=== PATIENT | male | born 1960 | race Caucasian/White ===

== ENCOUNTER 2017-02-05 20:52 | Emergency (ER) | payer MEDICARE, MEDICAID ==
[~2017-02-05] VITALS: Ht 170.2 cm; Wt 76.0 kg
[2017-02-05 20:57] VITALS: BP 130/90
[2017-02-05] MEDS ORDERED: IBUPROFEN 200 MG TABLET PO ONE (22:00)
[2017-02-05] MEDS ORDERED: IBUPROFEN 200 MG TABLET ONE (22:09)
[2017-02-05 22:57] LABS: BLOOD UREA NITROGEN 16 mg/dL (7-18); HEMOGLOBIN 14.1 g/dL (13.7-18.0)
== END 2017-02-05 23:30 | disposition home or self-care (01) ==
LOC: ED 22:31
DX: M79.1 Myalgia (principal); M19.90 Unspecified osteoarthritis, unspecified site; J44.9 Chronic obstructive pulmonary disease, unspecified; F17.200 Nicotine dependence, unspecified, uncomplicated; Z85.9 Personal history of malignant neoplasm, unspecified; Z90.49 Acquired absence of other specified parts of digestive tract
CPT/HCPCS: 36415; 71020; 80048; 82040; 83735; 85025

== ENCOUNTER 2017-10-19 21:39 | Emergency (ER) | payer MEDICARE, MEDICAID ==
[~2017-10-19] VITALS: Ht 167.6 cm; Wt 76.2 kg
[2017-10-19 21:42] VITALS: BP 135/88
[2017-10-19] MEDS ORDERED: IBUPROFEN 200 MG TABLET PO ONE (22:30)
[2017-10-19] MEDS ORDERED: IBUPROFEN 200 MG TABLET ONE (22:33)
[2017-10-19] MEDS ORDERED: HYDROcodone/APAP 5/325 TABLET ONE (23:46)
[2017-10-20] MEDS ORDERED: HYDROcodone/APAP 5/325 TABLET PO ONE
== END 2017-10-19 23:54 | disposition home or self-care (01) ==
LOC: ED 23:00
DX: S43.421A Sprain of right rotator cuff capsule, initial encounter (principal); S16.1XXA Strain of muscle, fascia and tendon at neck level, initial encounter; G89.11 Acute pain due to trauma; J44.9 Chronic obstructive pulmonary disease, unspecified; Y04.8XXA Assault by other bodily force, initial encounter; Y93.89 Activity, other specified; Y92.59 Other trade areas as the place of occurrence of the external cause; Y99.8 Other external cause status
CPT/HCPCS: 72050; 99284

== ENCOUNTER 2017-10-27 07:29 | Emergency (ER) | payer MEDICARE, MEDICAID ==
[~2017-10-27] VITALS: Ht 167.6 cm; Wt 71.0 kg
[2017-10-27 07:33] VITALS: BP 160/94
[2017-10-27] MEDS ORDERED: NAPR-856 PO (08:04)
[2017-10-27] MEDS ORDERED: KETOROLAC 30 MG/1 ML ONE (08:20)
[2017-10-27] MEDS ORDERED: KETOROLAC 30 MG/1 ML IM ONE (08:30)
== END 2017-10-27 08:52 | disposition home or self-care (01) ==
LOC: ED 08:13
DX: M25.512 Pain in left shoulder (principal); J44.9 Chronic obstructive pulmonary disease, unspecified; M19.90 Unspecified osteoarthritis, unspecified site; Z59.0 Homelessness
CPT/HCPCS: 96372; 99283; J1885

== ENCOUNTER 2017-11-20 11:00 | Emergency (ER) | payer MEDICARE, MEDICAID ==
[~2017-11-20] VITALS: Ht 167.6 cm; Wt 71.5 kg
[~2017-11-20 11:00] MED LIST: NAPR-856 PO
[2017-11-20 11:09] VITALS: BP 126/87
[2017-11-20] MEDS ORDERED: IBUPROFEN 200 MG TABLET PO ONE (12:30)
[2017-11-20] MEDS ORDERED: IBUPROFEN 200 MG TABLET ONE (12:32)
[2017-11-20 12:51] LABS: RAPID INFLUENZA A Negative (Negative); RAPID INFLUENZA B Negative (Negative)
== END 2017-11-20 13:41 | disposition home or self-care (01) ==
LOC: ED 12:00
DX: J00 Acute nasopharyngitis [common cold] (principal); L04.0 Acute lymphadenitis of face, head and neck; J44.9 Chronic obstructive pulmonary disease, unspecified; Z90.49 Acquired absence of other specified parts of digestive tract
CPT/HCPCS: 71046; 87081; 87400; 87880; 99285

== ENCOUNTER 2018-08-24 10:55 | Emergency (ER) | payer MEDICARE, MEDICAID ==
[~2018-08-24] VITALS: Ht 167.6 cm; Wt 71.3 kg
[2018-08-24 10:57] VITALS: BP 122/87
[2018-08-24] MEDS ORDERED: IBUPROFEN 200 MG TABLET ONE (11:26)
[2018-08-24] MEDS ORDERED: IBUPROFEN 200 MG TABLET PO ONE (11:30)
== END 2018-08-24 11:54 | disposition home or self-care (01) ==
LOC: ED 11:07
DX: S62.615A Displaced fracture of proximal phalanx of left ring finger, initial encounter for closed fracture (principal); S62.617A Displaced fracture of proximal phalanx of left little finger, initial encounter for closed fracture; J44.9 Chronic obstructive pulmonary disease, unspecified; Z85.118 Personal history of other malignant neoplasm of bronchus and lung; Y04.0XXA Assault by unarmed brawl or fight, initial encounter; Y93.89 Activity, other specified; Y92.89 Other specified places as the place of occurrence of the external cause; Y99.8 Other external cause status
CPT/HCPCS: 99284

== ENCOUNTER 2019-05-15 11:08 | Emergency (ER) | payer MEDICARE, MEDICAID ==
[~2019-05-15] VITALS: Ht 167.6 cm; Wt 70.9 kg
--- NOTE | 2019-05-15 11:50 | NUR ---
TO ROOM FROM LOBBY. NAD.
--- NOTE | 2019-05-15 12:00 | NUR ---
THIS IS A 58 Y/O MALE THAT ARRIVES TO THE ED WITH LEFT SIDED DENTAL PAIN AND MODERATE SWELLING THAT EXTENDS OVER THE ZYGOMATIC ARCH AND MAXILLA AREAS.. PT REPORTS HAVING A CAVITIY AND THE SWELLING STARTED ABOUT TWO DAYS AGO. PT REPORTS NO VISUAL CHANGES. PT HAS NO NEURO CHANGES. PT CONNECTED TO MONITORS AND CALL LIGHT IN REACH. PT DENIES ORAL TRUAMA. PT HAS FOUL ORDOR COMING FROM MOUTH. AWAITING FURTHER ORDERS AT THIS TIME.
--- NOTE | 2019-05-15 12:15 | NUR ---
DR. CHRISTIAN AT BEDSIDE FOR EXAM. PIV ESTABLISHED AND LABS AND BC X 1 DRAWN.
[2019-05-15 12:28] LABS: BASOPHILS # (AUTO) 0.03 x10^3/uL (0-0.1); BASOPHILS % (AUTO) 0 % (0-1); EOSINOPHILS # (AUTO) 0.01 x10^3/uL (0-0.4); EOSINOPHILS % (AUTO) 0 % (1-7); LYMPHOCYTES # (AUTO) 1.11 x10^3/uL (1-3.4); LYMPHOCYTES % (AUTO) 10 % (22-44); MD NO; MEAN CORPUSCULAR HEMOGLOBIN 31.2 pg (27.5-34.5); MEAN CORPUSCULAR HGB CONC 33.2 g/dL (33.2-36.2); MEAN CORPUSCULAR VOLUME 93.8 fL (81-97); MEAN PLATELET VOLUME 8.1 fL (7.4-10.4); MONOCYTES # (AUTO) 0.92 x10^3/uL (0.2-0.8); MONOCYTES % (AUTO) 8 % (2-9); NEUTROPHILS # (AUTO) 9.22 x10^3/uL (1.8-6.8); NEUTROPHILS % (AUTO) 82 % (42-75); PLATELET COUNT 278 x10^3/uL (130-400); RED BLOOD COUNT 5.19 x10^6/uL (4.38-5.82); RED CELL DISTRIBUTION WIDTH 13.9 % (9.4-14.8)
[2019-05-15 12:41] LABS: ALBUMIN 3.5 g/dL (3.4-5.0); ANION GAP 8 mmol/L (5-15); CALCIUM 8.8 mg/dL (8.5-10.1); CHLORIDE 102 mmol/L (98-107)
[2019-05-15 12:43] VITALS: BP 132/68
--- NOTE | 2019-05-15 12:43 | NUR ---
PT RESTING IN BED, NADN. PT REPORTS NO NEEDS AT THIS TIME.
[2019-05-15] MEDS ORDERED: OMNIPAQUE 350 MG/ML, 75ML BOTTLE ONE (13:27)
--- NOTE | 2019-05-15 13:51 | NUR ---
RX REQUESTED FROM PHARMACY AT THIS TIME.
[2019-05-15] MEDS ORDERED: CLINDAMYCIN 150 MG CAPSULE PO ONE (14:00)
--- NOTE | 2019-05-15 14:14 | NUR ---
Patient/Caregiver given discharge instructions and they have confirmed that they understand the instructions. Patient ambulatory with steady gait.
[2019-05-15] MEDS ORDERED: CLINDAMYCIN 300 MG CAPSULE ONE (14:31)
== END 2019-05-15 14:15 | disposition home or self-care (01) ==
LOC: ED 13:03
DX: K04.7 Periapical abscess without sinus (principal); K02.9 Dental caries, unspecified; L03.211 Cellulitis of face; Z72.9 Problem related to lifestyle, unspecified; J44.9 Chronic obstructive pulmonary disease, unspecified; R22.0 Localized swelling, mass and lump, head; Z90.49 Acquired absence of other specified parts of digestive tract
CPT/HCPCS: 36415; 70487; 80048; 82040; 85025; 99284; Q9967

== ENCOUNTER 2020-01-19 21:54 | Emergency (ER) | payer MEDICARE, MEDICAID ==
[~2020-01-19] VITALS: Ht 167.6 cm; Wt 72.7 kg
[2020-01-19] MEDS ORDERED: KETAMINE 10 MG/ML, 20ML ONE (22:16)
--- NOTE | 2020-01-19 22:18 | NUR ---
Pt placed in 4 point restraints at 2210. Pt walked out of his room and demanded to leave. Pt escorted back to his room and instructed to get into the bed. Pt refused to get into the bed and became increasingly agitated. Pt raised his left hand toward staff and was controlled to the bed. Security arrived and pt was restrained. Pt continues to be agitated and yelling at staff at this time.
[2020-01-19] MEDS ORDERED: ZIPRASIDONE 20 MG INJ IM ONE ×2 (22:19→22:30)
--- NOTE | 2020-01-19 22:21 | NUR ---
Homer is in with pt at this time.
[2020-01-19] MEDS ORDERED: KETAMINE 100 MG/ML, 5ML IM ONE (22:30)
--- NOTE | 2020-01-19 23:11 | NUR ---
Pt now sleeping. Restraints removed for CT.
--- NOTE | 2020-01-19 23:58 | NUR ---
Pt continues to sleep, difficult to arouse. Plan for D/C when pt is awake.
--- NOTE | 2020-01-20 00:20 | NUR ---
Sleeping quietly, NAD at this time, resp rate even and regular. Await sobriety for safe discharge
--- NOTE | 2020-01-20 02:00 | NUR ---
Pt continues to sleep and does not arouse to voice at this point.
[2020-01-20 03:28] VITALS: BP 138/81
--- NOTE | 2020-01-20 04:25 | NUR ---
Pt now opens eyes to voice and minimally responds to yes/no questions. Vital signs continue to be stable.
--- NOTE | 2020-01-20 07:11 | NUR ---
BEDSIDE REPORT FROM HOLLY PAREDES, PT RESTING IN CHAIR. AWAITING XRAYS BEFORE DC
--- NOTE | 2020-01-20 07:43 | NUR ---
XRAY CLEAR PER MD, PT AMBULATED TO DISCHARGE DESK WITH STEADY GAIT, PT GIVEN WATER PER REQUEST
== END 2020-01-20 07:45 | disposition home or self-care (01) ==
LOC: ED 01-20 02:49
DX: S06.0X0A Concussion without loss of consciousness, initial encounter (principal); S01.01XA Laceration without foreign body of scalp, initial encounter; F10.20 Alcohol dependence, uncomplicated; Y90.9 Presence of alcohol in blood, level not specified; Z72.9 Problem related to lifestyle, unspecified; M19.90 Unspecified osteoarthritis, unspecified site; J44.9 Chronic obstructive pulmonary disease, unspecified; Z90.49 Acquired absence of other specified parts of digestive tract; W18.30XA Fall on same level, unspecified, initial encounter; Y93.89 Activity, other specified; Y92.410 Unspecified street and highway as the place of occurrence of the external cause; Y99.8 Other external cause status
CPT/HCPCS: 12002; 70450; 72125; 73030; 73080; 73110; 96372; 99285; J3486

== ENCOUNTER 2020-02-10 12:35 | Emergency (ER) | payer MEDICARE, MEDICAID ==
[~2020-02-10] VITALS: Ht 167.6 cm; Wt 70.7 kg
[2020-02-10 12:36] VITALS: BP 144/85
== END 2020-02-10 13:09 | disposition home or self-care (01) ==
LOC: ED 13:02
DX: S01.01XD Laceration without foreign body of scalp, subsequent encounter (principal); J44.9 Chronic obstructive pulmonary disease, unspecified; Z90.49 Acquired absence of other specified parts of digestive tract; X58.XXXD Exposure to other specified factors, subsequent encounter
CPT/HCPCS: 99281